=== PATIENT | female | born 1965 | race Caucasian/White ===

== ENCOUNTER 2019-07-16 00:44 | Emergency (ER) | payer BC ==
[2019-07-16 02:15] LABS: Prothrombin Time 13.1 SEC (12.0-14.7)
[2019-07-16 02:18] LABS: Bilirubin Negative (Negative); Blood, Urine Negative (Negative); Clarity Clear (Clear); Glucose, Urine (Dipstick) Negative (Negative); Leukocyte Trace (Negative); Nitrite Negative (Negative); Protein, Urine (Dipstick) Negative (Neg-Trace); Urobilinogen 0.2 mg/dL (Less than 2)
[2019-07-16 02:20] LABS: Bacteria/HPF Rare-Few HPF (None Seen); RBC/HPF None Seen HPF (0-3); Squamous Epithelial 0-3 HPF (0-3); WBC/HPF 0-3 HPF (0-3)
[2019-07-16 02:21] LABS: ALT (SGPT) 21 U/L (8-55); AST (SGOT) 29 U/L (5-34); Albumin 4.5 g/dL (3.5-5.0); Alkaline Phosphatase 84 U/L (40-110); Anion Gap 12 mmol/L (10-20); BUN (Urea Nitrogen) 12 mg/dL (9.8-20.1); Bilirubin, Total 0.4 mg/dL (0.2-1.2); Calc. Creatinine Clearance 0 mL/min (70-130); Calcium 9.3 mg/dL (7.8-10.44); Carbon Dioxide 22 mmol/L (22-29); Chloride 112 mmol/L (98-107); Estimated GFR-MDRD 65; Globulin 2.5 g/dL (2.4-3.5); Glucose 85 mg/dL (70-105); Magnesium 2.2 mg/dL (1.6-2.6); Sodium 143 mmol/L (136-145)
[2019-07-16 02:25] LABS: Band 2 % (5-11); Hemoglobin 12.7 g/dL (12.0-16.0); Lymphocytes 58 % (21-51); MDiff Complete? YES; Mean Corpuscular HGB CONC 31.4 g/dL (32.0-36.0); Mean Corpuscular Hemoglobin 29.9 pg (27.0-31.0); Mean Platelet Volume 7.8 fL (7.4-10.4); Monocytes 2 % (0-10); Neutrophil 6 % (42-75); Platelet Count 138 thou/uL (130-400); Platelet Morphology Comment Appears Adequate; RBC Distribution Width 11.6 % (11.5-14.5); RBC Morphology Normal; Reactive Lymphocytes 32 % (0-10); Red Blood Cell (RBC) Count 4.24 mill/uL (4.20-5.40)
[2019-07-16 02:27] LABS: Manual Diff?? YES; White Blood Cell (WBC) Count 52.5 thou/uL (4.8-10.8)
[2019-07-16] MEDS ORDERED: Potassium Chloride 20 MEQ TAB ONE (02:38)
--- NOTE | 2019-07-16 08:16 | RAD ---
RADIOGRAPH CHEST 2 VIEWS: DATE: 07/16/2019 HISTORY: 54-year-old female with dyspnea FINDINGS: There is no airspace density, pulmonary edema, pleural effusion, pneumothorax, or cardiomegaly. There is slight hyperinflation. IMPRESSION: No acute cardiopulmonary findings.
== END 2019-07-16 02:50 | disposition home or self-care (01) ==
LOC: MADERS 00:44
DX: E87.6 Hypokalemia (principal); C91.10 Chronic lymphocytic leukemia of B-cell type not having achieved remission; D64.9 Anemia, unspecified; F41.9 Anxiety disorder, unspecified; F31.9 Bipolar disorder, unspecified; K58.9 Irritable bowel syndrome, unspecified
CPT/HCPCS: 36415; 71046; 80053; 81003; 81015; 83735; 84484; 85025; 85610; 93005

== ENCOUNTER 2022-03-29 09:49 | Emergency (ER) | payer BC ==
[2022-03-29] MEDS ORDERED: Fentanyl 100 MCG/2 ML VIAL ONE (10:42)
[2022-03-29 11:06] LABS: ALT (SGPT) 16 U/L (8-55); AST (SGOT) 29 U/L (5-34); Albumin 4.5 g/dL (3.5-5.0); Alkaline Phosphatase 112 U/L (40-110); Anion Gap 10 mmol/L (10-20); BUN (Urea Nitrogen) 15 mg/dL (9.8-20.1); Bilirubin, Total 0.4 mg/dL (0.2-1.2); Calc. Creatinine Clearance 0 mL/min (70-130); Calcium 9.4 mg/dL (7.8-10.44); Carbon Dioxide 25 mmol/L (22-29); Chloride 111 mmol/L (98-107); Estimated GFR 61; Globulin 2.2 g/dL (2.4-3.5); Glucose 97 mg/dL (70-105); Hemoglobin 11.9 g/dL (12.0-16.0); Mean Corpuscular HGB CONC 35.1 g/dL (32.0-36.0); Mean Corpuscular Hemoglobin 34.5 pg (27.0-31.0); Mean Corpuscular Volume 98.4 fL (78.0-98.0); Mean Platelet Volume 6.7 fL (7.4-10.4); Platelet Count 100 thou/uL (130-400); Protein, Total 6.7 g/dL (6.0-8.3); RBC Distribution Width 12.4 % (11.5-14.5); Red Blood Cell (RBC) Count 3.44 mill/uL (4.20-5.40); Sodium 142 mmol/L (136-145)
[2022-03-29 11:09] LABS: Lymphocytes 97 % (21-51); MDiff Complete? YES; Neutrophil 3 % (42-75)
[2022-03-29 11:10] LABS: Hypochromia SLIGHT = 6-15 cells (100X) (0-5/hpf); Platelet Morphology Comment Appears Decreased
== END 2022-03-29 11:36 | disposition home or self-care (01) ==
LOC: MADERS 09:49
DX: S16.1XXA Strain of muscle, fascia and tendon at neck level, initial encounter (principal); S13.4XXA Sprain of ligaments of cervical spine, initial encounter; S00.03XA Contusion of scalp, initial encounter; C91.10 Chronic lymphocytic leukemia of B-cell type not having achieved remission; K21.9 Gastro-esophageal reflux disease without esophagitis; W18.30XA Fall on same level, unspecified, initial encounter; Y92.090 Kitchen in other non-institutional residence as the place of occurrence of the external cause
CPT/HCPCS: 70450; 72125; 80053; 84484; 85025; 85060; 93005; 96374; J3010

== ENCOUNTER 2022-04-17 07:58 | Outpatient (CLI) | payer BC | END 2022-04-17 07:59 | disposition home or self-care (01) | LOC: MADLABBHPM 07:58 → MADLAB 07:59 | PROVIDERS: ATTEND Family Medicine | DX: Z01.411 Encounter for gynecological examination (general) (routine) with abnormal findings (principal); Z78.0 Asymptomatic menopausal state | CPT/HCPCS: 88175 ==

== ENCOUNTER 2022-09-11 14:57 | Outpatient (CLI) | payer OTHER | END 2022-09-11 14:58 | disposition home or self-care (01) | LOC: MADRAD 14:57 | PROVIDERS: ATTEND Registered Nurse | DX: R06.00 Dyspnea, unspecified (principal); R05.2 Subacute cough | CPT/HCPCS: 71046 ==

== ENCOUNTER 2022-10-01 16:31 | Emergency (ER) | payer OTHER ==
[2022-10-01] MEDS ORDERED: Metoclopramide HCl 10 MG/2 ML VIAL ONE (16:59)
[2022-10-01] MEDS ORDERED: Sodium Chloride 0.9% 1,000 ML ONE (16:59)
[2022-10-01] MEDS ORDERED: diphenhydrAMINE 50 MG/ML VIAL ONE (16:59)
[2022-10-01 17:43] LABS: Hemoglobin 12.9 g/dL (12.0-16.0); Hypochromia SLIGHT = 6-15 cells (100X) (0-5/hpf); Lymphocytes 99 % (21-51); MDiff Complete? YES; Mean Corpuscular HGB CONC 33.2 g/dL (32.0-36.0); Mean Corpuscular Hemoglobin 34.5 pg (27.0-31.0); Mean Corpuscular Volume 104.1 fl (78.0-98.0); Mean Platelet Volume 9.5 fL (7.4-10.4); Neutrophil 1 % (42-75); Platelet Count 108 10x3/uL (130-400); Platelet Morphology Comment Appears Decreased; Red Blood Cell (RBC) Count 3.73 mill/uL (4.20-5.40); Reflex for Review?? YES
== END 2022-10-01 19:05 | disposition home or self-care (01) ==
LOC: MADERS 16:31
DX: G44.309 Post-traumatic headache, unspecified, not intractable (principal); C91.10 Chronic lymphocytic leukemia of B-cell type not having achieved remission; K21.9 Gastro-esophageal reflux disease without esophagitis
CPT/HCPCS: 70450; 85025; 85060; J1200; J2765; J7050

== ENCOUNTER 2023-01-26 16:13 | Emergency (ER) | payer OTHER ==
[2023-01-26 17:07] LABS: Bilirubin Negative (Negative); Blood, Urine Trace (Negative); Clarity Clear (Clear); Glucose, Urine (Dipstick) Negative (Negative); Ketone, Urine Negative (Negative); Leukocyte Negative (Negative); Nitrite Negative (Negative); Protein, Urine (Dipstick) Negative (Neg-Trace); Specific Gravity, Urine 1.015 (1.005-1.030); Urobilinogen 0.2 mg/dL (Less than 2); pH, Urine 5.5 (5.0-9.0)
[2023-01-26] MEDS ORDERED: Vancomycin 1 GM VIAL ONE (17:08)
[2023-01-26] MEDS ORDERED: Meropenem 1 GM VIAL ONE (17:08)
[2023-01-26] MEDS ORDERED: Lactated Ringer's 1,000 ML ONE (17:08)
[2023-01-26] MEDS ORDERED: Sodium Chloride 0.9% 250 ML 250 ML ONE (17:08)
[2023-01-26] MEDS ORDERED: Sodium Chloride 0.9% 100 ML ONE (17:10)
[2023-01-26 17:15] LABS: Bacteria/HPF Rare-Few HPF (None Seen); CAUTI Indications for Culture Fever or rigors; Mucous/LPF 1+ LPF (<2+); RBC/HPF 0-3 HPF (0-3); Squamous Epithelial 0-3 HPF (0-3); Urine Culture Reflex No No; WBC/HPF None Seen HPF (0-3)
[2023-01-26 17:16] LABS: Prothrombin Time 13.3 sec (12.0-14.7)
[2023-01-26 17:17] LABS: PTT 28.7 sec (22.9-36.1)
[2023-01-26 17:26] LABS: ALT (SGPT) 9 U/L (8-55); AST (SGOT) 19 U/L (5-34); Albumin 4.6 g/dL (3.5-5.0); Alkaline Phosphatase 68 U/L (40-110); Anion Gap 16 mmol/L (10-20); BUN (Urea Nitrogen) 22 mg/dL (9.8-20.1); Bilirubin, Total 0.5 mg/dL (0.2-1.2); Calc. Creatinine Clearance 0 mL/min (70-130); Calcium 9.4 mg/dL (7.8-10.44); Carbon Dioxide 18 mmol/L (22-29); Chloride 111 mmol/L (98-107); Estimated GFR 62; Globulin 2.4 g/dL (2.4-3.5); Glucose 107 mg/dL (70-105); Potassium 3.6 mmol/L (3.5-5.1); Sodium 141 mmol/L (136-145)
[2023-01-26 17:36] LABS: Hematocrit 40.9 % (36.0-47.0); Hemoglobin 14.1 g/dL (12.0-16.0); Lymphocytes 14 % (21-51); MDiff Complete? YES; Mean Corpuscular HGB CONC 34.4 g/dL (32.0-36.0); Mean Corpuscular Volume 90.2 fl (78.0-98.0); Mean Platelet Volume 10.7 fL (7.4-10.4); Monocytes 12 % (0-10); Myelocyte 1 % (0-0); Neutrophil 8 % (42-75); Platelet Adequacy Comment Appears Decreased; Platelet Count 93 10x3/uL (130-400); RBC Distribution Width 11.2 % (11.5-14.5); Reactive Lymphocytes 63 % (0-10); Red Blood Cell (RBC) Count 4.53 mill/uL (4.20-5.40); Reflex for Review?? NO
[2023-01-26 18:45] LABS: SARS-CoV-2 NAA Rapid Test Not Detected (NotDetected)
[2023-01-26] MEDS ORDERED: Ondansetron PF 4 MG/2 ML Vial ONE (22:01)
[2023-01-26] MEDS ORDERED: Acetaminophen 325 MG TAB ONE (22:01)
== END 2023-01-26 22:34 | disposition short-term general hospital (02) ==
LOC: MADERS 16:13
DX: D70.9 Neutropenia, unspecified (principal); R50.81 Fever presenting with conditions classified elsewhere; N18.30 Chronic kidney disease, stage 3 unspecified; E03.9 Hypothyroidism, unspecified; I95.9 Hypotension, unspecified; M81.0 Age-related osteoporosis without current pathological fracture; D64.9 Anemia, unspecified; Z20.822 Contact with and (suspected) exposure to COVID-19; Z79.899 Other long term (current) drug therapy; Z85.6 Personal history of leukemia
CPT/HCPCS: 80053; 81001; 83605; 85025; 85610; 85730; 86140; 87040; 94760; 96365; 96367; 96375; J2185; J2405; J3370; J3490; J7050; J7120

== ENCOUNTER 2023-12-11 14:49 | Outpatient (CLI) | payer OTHER | END 2023-12-11 14:50 | disposition home or self-care (01) | LOC: MADLAB 14:49 → MADRAD 14:50 | PROVIDERS: ATTEND Internal Medicine | DX: J18.9 Pneumonia, unspecified organism (principal); K44.9 Diaphragmatic hernia without obstruction or gangrene | CPT/HCPCS: 71046 ==